=== PATIENT | male | born 1940 | race Caucasian/White ===

== ENCOUNTER → 2017-06-14 | Outpatient (CLI) | payer MEDICARE ==
[~2017-06-14] MED LIST: AMBIEN10 MG PO; CIPRO500 MG PO; CLINDAMYCIN HC150 MG PO; COLESTID1 GM PO; FLAGYL250 MG PO; GLIPIZIDE XL2.5 MG PO; HYDROXYZINE HCL25 MG PO; LEVAQUIN500 MG PO; LISINOPRIL-HCT1 EAC3 PO; MELATONIN PO; NORCO 7.5-3251 EACH PO; Z.0.LEVOXYL100 MCG PO; ZOLPIDEM TARTRAT5 MG PO
--- NOTE | 2017-06-14 20:55 | Cardiology Report ---
DATE OF STUDY: June 14, 2017 DOPPLER SCAN OF THE LOWER EXTREMITY ARTERIES The lower extremity arteries were interrogated using the Duplex scanning method. Segmental pressure measurements of ankle brachial indices were not submitted for interpretation. Duplex scan showed biphasic and triphasic waveforms throughout except for the right profundus femoral artery which showed monophasic waveform. CONCLUSION 1. Possible high-grade stenosis involving the right profundus femoral artery. 2. No high-grade stenosis or flow impairment elsewhere bilaterally with all waveforms elsewhere biphasic and triphasic. 3. No ankle brachial indices or segmental pressure measurements submitted for interpretation. Job#: [id number] GH cc:AUGUSTUS ARCHIBALD DO
== END ==
LOC: CARD 14:05
PROVIDERS: ATTEND Family Medicine
DX: I70.209 Unspecified atherosclerosis of native arteries of extremities, unspecified extremity (principal)
CPT/HCPCS: 93925

== ENCOUNTER → 2017-09-02 | Outpatient (CLI) | payer MEDICARE ==
[~2017-09-02] MED LIST changes: +DIATRIZOATE MEGL/DIATRIZOA SOD 30 ML BTL PO ONE; +IOPAMIDOL 370 MG/ML 200 ML INFUS..BTL INJ ONE; +SODIUM CHLORIDE 0.9% 50ML 50 ML ONE
[2017-09-02 08:03] LABS: BLOOD UREA NITROGEN 18 mg/dL (7-26); BUN/CREATININE RATIO 19 (6-25); CREATININE, SERUM 0.95 mg/dL (0.72-1.25); EST GLOMERULAR FILTRATION RATE > 60 ML/MIN (60-)
--- NOTE | 2017-09-02 11:27 | Diagnostic Imaging Report ---
PROCEDURE: CT ABDOMEN AND PELVIS WITH CONTRAST TECHNIQUE: The abdomen and pelvis were scanned utilizing a multidetector helical scanner from the diaphragm to the lesser trochanter after the IV administration of 100cc of Isovue 370 and the oral administration of Gastrografin. Coronal and sagittal multiplanar reformations were obtained. Total DLP: 568.8 mGy-cm COMPARISON: CT abdomen pelvis 01/20/2017. INDICATIONS: LLQ PAIN FINDINGS: LOWER THORAX: Normal. HEPATOBILIARY: Diffuse hepatic steatosis. No focal hepatic lesions. No biliary ductal dilatation. Gallbladder is surgically absent with cholecystectomy clips. SPLEEN: No splenomegaly. PANCREAS: No focal masses or ductal dilatation. ADRENALS: No adrenal nodules. KIDNEYS/URETERS: No hydronephrosis, stones, or solid mass lesions. A 0.5 cm cyst in the lower pole of the left kidney. PELVIC ORGANS/BLADDER: Prostate measures 6.0 cm in transverse dimension with coarse dystrophic calcifications. PERITONEUM / RETROPERITONEUM: No free air or fluid. LYMPH NODES: No lymphadenopathy. Several 0.9 cm right external iliac lymph node. 0.6 cm left external iliac with a lymph node. VESSELS: Moderate severe atherosclerotic calcifications in the abdominal aorta and major arterial branches. 2 right renal artery and one left renal artery. GI TRACT: No distention or wall thickening. Surgical sutures at the cecum, likely prior appendectomy. A few scattered colonic diverticula without evidence of diverticulitis. BONES AND SOFT TISSUES: Bilateral L5 pars defect is grade 1 anterolisthesis of L5 on S1. Mild disc space narrowing with disc vacuum phenomenon. Mild soft tissue density changes around the left inguinal canal, unchanged since 01/20/2017, consistent with previous left inguinal hernia repair. IMPRESSION: 1. No source of left lower quadrant abdominal pain identified. 2. Previous left groin/inguinal hernia repair. 3. Moderate atherosclerotic calcifications in the aorta. 4. Diffuse hepatic steatosis. Dictated by: Lauro Viramontes M.D. on 09/02/2017 at 11:27 Electronically approved by: Lauro Viramontes M.D. on 09/02/2017 at 11:27
== END ==
LOC: CT 07:24
PROVIDERS: ATTEND Internal Medicine Gastroenterology
DX: E11.9 Type 2 diabetes mellitus without complications (principal); R10.32 Left lower quadrant pain; R10.33 Periumbilical pain; I10 Essential (primary) hypertension; K58.9 Irritable bowel syndrome, unspecified; E66.3 Overweight; Z71.3 Dietary counseling and surveillance
CPT/HCPCS: 36415; 74177; 82565; 84520; Q9967

== ENCOUNTER → 2017-11-30 | Outpatient (CLI) | payer MEDICARE ==
[~2017-11-30] MED LIST changes: -DIATRIZOATE MEGL/DIATRIZOA SOD 30 ML BTL PO ONE; -IOPAMIDOL 370 MG/ML 200 ML INFUS..BTL INJ ONE; -SODIUM CHLORIDE 0.9% 50ML 50 ML ONE
--- NOTE | 2017-11-30 19:29 | Diagnostic Imaging Report ---
EXAM: Limited soft tissue Ultrasound INDICATION: Localized redness and palpable lump on extremity \S\MASS OF SOFT TISSUE OF LEFT UPPER EXTREMITY COMPARISON: None TECHNIQUE: Transverse and longitudinal images of the medial aspect of the left forearm, in area of palpable abnormality FINDINGS: Examination shows 2.0 x 0.5 x 1.2 cm heterogeneous collection in the subcutaneous tissues of the left forearm, corresponding to the palpable abnormality. Multiple internal echoes suggesting debris. There is mildly increased vascularity surrounding this collection. Mild surrounding soft tissue edema. IMPRESSION: 1. Findings likely represent subcutaneous abscess in the left forearm Signed by: Dr. Magdi Martinez M.D. on 11/30/2017 7:26 PM
== END ==
LOC: US 16:08
PROVIDERS: ATTEND Family Medicine
DX: R22.32 Localized swelling, mass and lump, left upper limb (principal)
CPT/HCPCS: 76882

== ENCOUNTER 2018-01-18 05:17 | Emergency (ER) | payer MEDICARE ==
[~2018-01-18] VITALS: Ht 177.8 cm; Wt 89.8 kg
[2018-01-18] MEDS ORDERED: PANTOPRAZOLE 40 MG 10ML VIAL IV STA (05:25)
[2018-01-18 06:00] LABS: BASOPHILS % 0.3 % (0.0-1.0); EOSINOPHILS # (AUTO) 0.3 (0.0-0.4); EOSINOPHILS % 3.1 % (0.0-6.0); HEMATOCRIT 45.2 % (38.2-49.6); HEMOGLOBIN 15.3 g/dL (14.0-18.0); LYMPHOCYTES # (AUTO) 3.4 (1.0-3.2); LYMPHOCYTES % 38.9 % (18.0-39.1); MEAN CORPUSCULAR HEMOGLOBIN 30.7 pg (28-32); MEAN CORPUSCULAR HGB CONC 33.8 g/dL (31-35); MEAN CORPUSCULAR VOLUME 90.8 fL (81-99); MONOCYTES # (AUTO) 0.8 (0.2-0.8); NEUTROPHILS # (AUTO) 4.2 (2.1-6.9); NEUTROPHILS % 48.5 % (38.7-80.0); PLATELET COUNT 248 x10e3/uL (140-360); RED BLOOD COUNT 4.98 x10e6/uL (4.3-5.7); RED CELL DISTRIBUTION WIDTH 12.9 % (11.7-14.4)
[2018-01-18 06:29] LABS: ALANINE AMINOTRANSFERASE 20 IU/L (0-55); ALBUMIN 4.1 g/dL (3.5-5.0); ALBUMIN/GLOBULIN RATIO 1.2 (0.8-2.0); ALKALINE PHOSPHATASE 68 IU/L (40-150); AMYLASE 64 U/L (25-125); ANION GAP 13.8 mmol/L (8-16); BLOOD UREA NITROGEN 16 mg/dL (7-26); BUN/CREATININE RATIO 17 (6-25); CARBON DIOXIDE 29 mmol/L (22-29); CHLORIDE 97 mmol/L (98-107); CREATINE KINASE 136 IU/L (30-200); CREATININE, SERUM 0.92 mg/dL (0.72-1.25); EST GLOMERULAR FILTRATION RATE > 60 ML/MIN (60-); GLUCOSE 90 mg/dL (74-118); LIPASE 37 U/L (8-78); POTASSIUM 3.8 mmol/L (3.5-5.1); SODIUM 136 mmol/L (136-145)
[2018-01-18 06:37] LABS: CALCIUM 10.2 mg/dL (8.4-10.2)
[2018-01-18 07:10] VITALS: BP 176/89
[2018-01-18 08:46] LABS: CREATINE KINASE 126 IU/L (30-200)
--- NOTE | 2018-01-18 09:04 | Diagnostic Imaging Report ---
PROCEDURE: A single AP view of the chest. COMPARISON: Chest radiograph 02/16/14. INDICATIONS: CHEST PAIN FINDINGS: Lines/tubes: None. Lungs: The lungs are well inflated and clear. There is no evidence of pneumonia or pulmonary edema. Pleura: There is no pleural effusion or pneumothorax. Heart and mediastinum: The cardiomediastinal silhouette is unremarkable. Bones: No acute bony abnormality. Partially seen cervical spine fixation hardware. IMPRESSION: No acute cardiopulmonary disease. Dictated by: TAJ MADRIGAL M.D. on 01/18/2018 at 7:40 Electronically approved by: TAJ MADRIGAL M.D. on 01/18/2018 at 7:40
== END 2018-01-18 09:15 | disposition home or self-care (01) ==
LOC: ER 05:17
DX: R10.13 Epigastric pain (principal); K29.00 Acute gastritis without bleeding; K21.9 Gastro-esophageal reflux disease without esophagitis
CPT/HCPCS: 36415; 71045; 80053; 82150; 82550; 82553; 83690; 84484; 85025; 93005; 99283

== ENCOUNTER 2018-03-21 09:37 | Inpatient (IN) | payer MEDICARE ==
[~2018-03-21] VITALS: Ht 167.6 cm; Wt 93.9 kg
[2018-03-21] MEDS ORDERED: CEFTRIAXONE SOD 1 GM VIAL INJ ONE (10:00)
[2018-03-21] MEDS ORDERED: ACETAMINOPHEN 325 MG TAB PO ONE (10:15)
[2018-03-21 10:45] LABS: BASOPHILS % 0.2 % (0.0-1.0); EOSINOPHILS # (AUTO) 0.1 (0.0-0.4); EOSINOPHILS % 0.5 % (0.0-6.0); HEMATOCRIT 43.8 % (38.2-49.6); HEMOGLOBIN 14.8 g/dL (14.0-18.0); LYMPHOCYTES # (AUTO) 1.4 (1.0-3.2); LYMPHOCYTES % 10.4 % (18.0-39.1); MEAN CORPUSCULAR HEMOGLOBIN 30.8 pg (28-32); MEAN CORPUSCULAR HGB CONC 33.8 g/dL (31-35); MEAN CORPUSCULAR VOLUME 91.1 fL (81-99); MONOCYTES # (AUTO) 1.2 (0.2-0.8); MONOCYTES % 8.6 % (4.4-11.3); NEUTROPHILS # (AUTO) 10.8 (2.1-6.9); PLATELET COUNT 244 x10e3/uL (140-360); RED BLOOD COUNT 4.81 x10e6/uL (4.3-5.7); RED CELL DISTRIBUTION WIDTH 13.2 % (11.7-14.4)
[2018-03-21] MEDS ORDERED: ONDANSETRON HCL INJ 2 MG/ML VIAL ONE (10:52)
[2018-03-21] MEDS ORDERED: SODIUM CHLORIDE 0.9% 1000ML 1,000 ML ONE (10:53)
--- NOTE | 2018-03-21 10:56 | Diagnostic Imaging Report ---
PROCEDURE: X-RAY CHEST, TWO VIEWS COMPARISON: 01/18/2018. INDICATIONS: HEADACHE, CHILLS FINDINGS: Lungs are well-inflated. No focal consolidation, pleural effusion, or pneumothorax. Cardiomediastinal contour and pulmonary vasculature are stable. Cervical spine fusion hardware partially visualized. Surgical clips project over the upper abdomen on the lateral radiograph likely related to cholecystectomy. Left sided cervical rib. CONCLUSION: No acute cardiopulmonary abnormality. Dictated by: Jack Menjivar M.D. on 03/21/2018 at 11:05 Electronically approved by: Jack Menjivar M.D. on 03/21/2018 at 11:05
[2018-03-21] MEDS ORDERED: ONDANSETRON HCL INJ 2 MG/ML VIAL IV STA (10:59)
[2018-03-21] MEDS ORDERED: SODIUM CHLORIDE 0.9% 1000ML 1,000 ML IV SCH (11:00)
[2018-03-21 11:03] LABS: ANION GAP 16.6 mmol/L (8-16); BLOOD UREA NITROGEN 13 mg/dL (7-26); BUN/CREATININE RATIO 13 (6-25); CALCIUM 9.7 mg/dL (8.4-10.2); CARBON DIOXIDE 26 mmol/L (22-29); CHLORIDE 100 mmol/L (98-107); CREATINE KINASE 140 IU/L (30-200); CREATININE, SERUM 1.01 mg/dL (0.72-1.25); EST GLOMERULAR FILTRATION RATE > 60 ML/MIN (60-); GLUCOSE 143 mg/dL (74-118); POTASSIUM 3.6 mmol/L (3.5-5.1); SODIUM 139 mmol/L (136-145)
[2018-03-21 12:00] LABS: CLARITY,URINE CLOUDY (CLEAR); COLOR,URINE YELLOW (YELLOW); LEUKOCYTE ESTERASE ,URINE 1+ (NEGATIVE); NITRITE,URINE POSITIVE (NEGATIVE); PROTEIN,URINE DIPSTICK NEGATIVE (NEGATIVE)
[2018-03-21 12:01] LABS: BILIRUBIN,URINE NEGATIVE (NEGATIVE); KETONES,URINE NEGATIVE (NEGATIVE); URINE UROBILINOGEN 0.2 mg/dL (0.2 - 1)
[2018-03-21 12:13] LABS: WBC,URINE (MAN) >50 /HPF (0-5)
[2018-03-21 12:14] LABS: BACTERIA,URINE MANY /HPF; EPITHELIAL CELLS,URINE RARE /LPF
[2018-03-21] MEDS ORDERED: ONDANSETRON HCL INJ 2 MG/ML VIAL IV PRN (13:30)
[2018-03-21] MEDS ORDERED: DEXTROSE 50% SYRINGE 50 ML IV PRN (13:30)
[2018-03-21] MEDS ORDERED: MORPHINE SULFATE 2 MG/ML SYR IV PRN (13:30)
[2018-03-21] MEDS ORDERED: MORPHINE SULFATE INJ 4 MG/ML INJ IV PRN (13:45)
[2018-03-21] MEDS ORDERED: KETOROLAC TROMETHAMINE 30 MG/ML VIAL IV STA (15:12)
[2018-03-21] MEDS: CEFTRIAXONE SOD 1 GM VIAL IV SCH (15:38)
[2018-03-21] MEDS: SODIUM CHLORIDE 0.9% 1000ML 1,000 ML IV SCH ×3 (15:39→23:13)
[2018-03-21] MEDS ORDERED: OMEPRAZOLE40 MG PO (16:11)
[2018-03-21] MEDS ORDERED: PLAVIX75 MG PO (16:11)
[2018-03-21] MEDS ORDERED: DIOVAN40 MG PO (16:11)
[2018-03-21 16:39] VITALS: BP 126/58
[2018-03-21 16:46] VITALS: BP 126/58
[2018-03-21] MEDS: INSULIN REGULAR, HUMAN 100 UNIT/1 ML 3ML VIAL SQ SCH ×2 (17:00→20:32)
[2018-03-21 17:22] VITALS: BP 126/58
[2018-03-21] MEDS: ACETAMIN/BUTALBITAL/CAFFEINE TAB PO PRN (18:21)
[2018-03-21 20:09] VITALS: BP 138/64
[2018-03-21 20:09] LABS: CREATINE KINASE MB 1.4 ng/mL (0-5.0)
[2018-03-21 20:10] VITALS: BP 138/64
[2018-03-21] MEDS: CLOPIDOGREL BISULFATE 75 MG TAB PO SCH (20:32)
--- NOTE | 2018-03-21 22:04 | Consultation ---
DATE OF CONSULTATION: March 21, 2018 CARDIAC CONSULTATION REASON FOR THE CONSULTATION: Cardiac care in patient with recent PCI and stenting of calcified coronary artery. HISTORY: This is a nice 78-year-old gentleman, who is known with coronary artery disease. His cardiac stress test was quite abnormal and he is having angina. He had the cardiac catheterization with very calcified coronary arteries. He got atherectomy and stenting of the LAD. He did well. He went home on medication very happy and doing well. He was able to maintain more activity with no anginal chest pain, no chest pressure, no chest tightness. He resumed all his medication. Yesterday evening, he started having fevers, chills, and difficulty urination. The fever, chills continue. 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 His temperature was 101. I advised him to come to the emergency room. His urinalysis is abnormal, admitted with acute pyelonephritis and cardiac consultation was obtained. CURRENT MEDICATIONS 1. Plavix 75 mg a day. 2. Aspirin 81 mg a day. 3. Losartan/hydrochlorothiazide 50 and 12.5 mg daily. 4. Levothyroxine 120 mcg a day. 5. Glipizide 2.5 mg a day. ALLERGIES: NONE. PAST MEDICAL HISTORY 1. CAD, status post recent PCI and atherectomy and PCI stenting of the LAD. 2. Diabetes mellitus. 3. Hypothyroidism. 4. Past history of H. pylori treatment. 5. Cholecystectomy. 6. Lower back surgery. 7. Cervical spine surgery in 2012. 8. Hernia surgery. 9. Appendectomy. 10. Left knee replacement in 2013. SOCIAL HISTORY: He is . He is nonsmoker, non-alcohol drinker. He is retired from [employer] and [employer] [place]. FAMILY HISTORY: Mother of a car accident at age 77. Father in the same car accident. Eleven siblings, few of them with coronary artery disease and bypass surgery. REVIEW OF SYSTEMS GENERAL: Fever and chills. HEENT: Decreased hearing. PULMONARY/CARDIAC: No angina, no orthopnea, no paroxysmal nocturnal dyspnea. GI: History of GERD. No hematemesis, no melena. HEMATOLOGICAL: No easy bruising or bleeding. : Fever, chills, and dysuria. MUSCULOSKELETAL: Weakness generalized. NEUROLOGIC: Good memory. No weakness no tingling. PHYSICAL EXAM VITALS: 5 feet 10. Weight of 197 pounds. Temperature of 100 Fahrenheit. Respiratory rate of 20. HEENT: Pupils are reactive. Decreased hearing is noted. NECK: No elevation of jugular venous pulsation. CHEST: Clear to auscultation and percussion. HEART: PMI 5th intracostal space. Normal 1st and 2nd heart sounds. ABDOMEN: Soft with good bowel sounds. No organomegaly. EXTREMITIES: No cyanosis. No clubbing. Decreased feet pulses. Right groin area no hematoma and no abnormality noted. LABORATORY DATA: White blood cell count shows 15.5 with left shift. EKG, no acute changes. Hemoglobin of 14.8, hematocrit 45%, BUN of 13, creatinine of 1.1. Urinalysis positive for blood and WBCs and nitrate. IMPRESSIONS AND PLAN 1. Pyelonephritis. 2. Diabetes mellitus. 3. Hypertension. 4. Coronary artery disease. 5. Hypertension. 6. Hypercholesterolemia. Cardiac-shirley will maintain patient on his Plavix, losartan, statin, and levothyroxine. Patient started on antibiotic. Will follow patient's progression with you. Job#: [id number]
[2018-03-21] MEDS: TEMAZEPAM 15 MG CAP PO PRN (23:38)
[2018-03-22] VITALS (8 sets, daily range): BP systolic 110–163; BP diastolic 62–77
[2018-03-22] MEDS: LEVOTHYROXINE SODIUM 100 MCG TAB PO SCH (05:05)
[2018-03-22 05:11] LABS: BASOPHILS # (AUTO) 0.1 (0.0-0.1); BASOPHILS % 0.2 % (0.0-1.0); EOSINOPHILS # (AUTO) 0.1 (0.0-0.4); EOSINOPHILS % 0.6 % (0.0-6.0); HEMATOCRIT 37.8 % (38.2-49.6); HEMOGLOBIN 12.7 g/dL (14.0-18.0); LYMPHOCYTES # (AUTO) 2.5 (1.0-3.2); LYMPHOCYTES % 12.4 % (18.0-39.1); MEAN CORPUSCULAR HEMOGLOBIN 30.8 pg (28-32); MEAN CORPUSCULAR HGB CONC 33.6 g/dL (31-35); MEAN CORPUSCULAR VOLUME 91.5 fL (81-99); MONOCYTES # (AUTO) 2.3 (0.2-0.8); MONOCYTES % 11.3 % (4.4-11.3); NEUTROPHILS # (AUTO) 15.3 (2.1-6.9); PLATELET COUNT 203 x10e3/uL (140-360); RED BLOOD COUNT 4.13 x10e6/uL (4.3-5.7); RED CELL DISTRIBUTION WIDTH 13.2 % (11.7-14.4)
[2018-03-22 05:47] LABS: CREATINE KINASE MB 1.1 ng/mL (0-5.0)
[2018-03-22 06:13] LABS: ANION GAP 13.1 mmol/L (8-16); BLOOD UREA NITROGEN 16 mg/dL (7-26); BUN/CREATININE RATIO 14 (6-25); CALCIUM 8.8 mg/dL (8.4-10.2); CARBON DIOXIDE 26 mmol/L (22-29); CHLORIDE 103 mmol/L (98-107); CREATININE, SERUM 1.14 mg/dL (0.72-1.25); EST GLOMERULAR FILTRATION RATE > 60 ML/MIN (60-); GLUCOSE 129 mg/dL (74-118); POTASSIUM 4.1 mmol/L (3.5-5.1); SODIUM 138 mmol/L (136-145)
[2018-03-22] MEDS ORDERED: DIOVAN80 MG PO (06:21)
[2018-03-22] MEDS: INSULIN REGULAR, HUMAN 100 UNIT/1 ML 3ML VIAL SQ SCH ×4 (07:30→20:15)
[2018-03-22 07:39] LABS: BAND NEUTROPHILS % (MANUAL) 1 %; LYMPHOCYTES % (MANUAL) 15 % (19-48); MONOCYTES % (MANUAL) 9 % (3.4-9.0); NEUTROPHILS % (MANUAL) 75 % (40-74); PLATELET ESTIMATE ADEQUATE; PLATELET MORPHOLOGY COMMENT NORMAL; RBC MORPHOLOGY COMMENT NORMAL
[2018-03-22] MEDS: GLIPIZIDE 2.5 MG TABCR PO SCH ×2 (08:39→16:13)
[2018-03-22] MEDS: ASPIRIN 81 MG ENTERIC COATED PO SCH (08:40)
[2018-03-22] MEDS: PANTOPRAZOLE SOD 40 MG TABEC PO SCH (08:40)
[2018-03-22] MEDS: COLESTIPOL HCL 1 G TAB PO SCH ×2 (08:40→16:13)
[2018-03-22] MEDS ORDERED: CLOPIDOGREL BISULFATE 75 MG TAB PO SCH (09:00)
[2018-03-22] MEDS: CEFTRIAXONE SOD 1 GM VIAL IV SCH (13:26)
[2018-03-22] MEDS: SODIUM CHLORIDE 0.9% 1000ML 1,000 ML IV SCH (13:53)
--- OUTSIDE RECORDS SUMMARY | 2018-03-22 14:18 | XMS REPORT | Continuity of Care Document ---
Author Author Jone cristina [facility] Interface Address Unknown Phone Unavailable Problems Problem Status Onset Date Classification Date Reported Comments Source 724.1 - PAIN IN THORACI Active 12/12/2013 [facility] 719.46 - JOINT PAIN-L/LE Active 12/06/2013 [facility] Medications Medication Details Route Status Patient Instructions Ordering Provider Order Date Source Allergies, Adverse Reactions, Alerts Substance Category Reaction Severity Reaction type Status Date Reported Comments Source Immunizations Immunization Date Given Site Status Last Updated Comments Source Results Order Name Results Value Reference Range Date Interpretation Comments Source Spine lumbar wo contrast MRI Spine lumbar wo contrast MRI MRI LUMBAR SPINE WITHOUT CONTRAST COMPARISON: 12/18/2013 radiograph exam. TECHNIQUE: Sagittal T1, sagittal T2 with fat saturation, axial T1 and axial T2 images were obtained. No intravenous gadolinium was given. FINDINGS: The paravertebral soft tissues are normal. The conus medullaris terminates at the L1-L2 level. Congenital shortened lumbar pedicles are seen. L1-L2: Mild thecal sac stenosis is seen due to the short lumbar pedicles. Mild bilateral foraminal stenosis due to mild bilateral foraminal disc bulges. L2-L3: Moderate thecal sac stenosis is seen due to the mild disc bulge and the short lumbar pedicles. Encroachment into the neural foramina is seen with moderate right foraminal stenosis and mild to moderate left foraminal stenosis. L3-L4: Mild dorsal disc osteophyte complex is seen resulting in moderate to severe thecal sac stenosis in combination with the short lumbar pedicles. Moderate to severe bilateral foraminal stenosis is also present with mass effect on the bilateral L3 exiting nerve root sleeves. L4-L5: Significant ligamenta flava redundancy is seen. Approximately 2.3 mm left subligamentous synovial cyst is present. Mild disc bulge is seen. Severe central canal stenosis is seen with the thecal sac measuring approximately 5.5 mm in the AP dimension. Moderate to severe bilateral foraminal stenosis is present. L5-S1: Grade 1 anterolisthesis is seen due to the bilateral L5 spondylolysis. Significant bilateral facet osteoarthritis is seen. There is moderate to severe thecal sac stenosis with mild disc bulge and posterior annular fissuring. There is severe bilateral foraminal stenosis with mass effect on the bilateral L5 exiting nerve root sleeves. IMPRESSION: 1. Multilevel disc degenerative disease and spondylosis. Congenital shortened lumbar pedicles are seen. 2. L5-S1 grade 1 spondylolisthesis with moderate to severe thecal sac stenosis and severe bilateral foraminal stenosis. 3. L4-L5 severe central canal stenosis and moderate to severe bilateral foraminal stenosis as above. 4. L2-L3 and L3-L4 moderate to severe thecal sac stenosis and foraminal stenosis as above. 01/03/2014 - - Read by: Jovani Saini MD Dictated Date/time: 01/03/14 11:04 Electronically Signed by: Jovani Saini MD 01/03/14 11:20 FINAL REPORT [facility] Spine lumbar minimum 4 views Spine lumbar minimum 4 views LUMBAR SPINE SERIES CLINICAL HISTORY: Low back pain. COMPARISON IMAGING: None. FINDINGS: Five views of the lumbar spine were obtained. Moderate multilevel degenerative changes are present, including loss of disc height, endplate sclerosis, marginal osteophytes, and facet hypertrophy. There is mild grade 1 anterolisthesis of L5 on S1 approximately 6 mm. No fracture or subluxation is seen. Soft tissues are grossly unremarkable. IMPRESSION: Moderate multilevel degenerative changes with grade 1 anterolisthesis of L5 on S1. 12/18/2013 - - Read by: Hannah Small DO Dictated Date/time: 12/18/13 08:06 Electronically Signed by: Hannah Small DO 12/18/13 08:09 FINAL REPORT [facility] Vital Signs Vital Sign Value Date Comments Source Encounters Location Location Details Encounter Type Encounter Number Reason For Visit Attending Provider ADM Date DC Date Status Source [facility] [id number] Rosas Jensen 12/06/2013 12/07/2013 [facility] [id number] Rosas Jensen 12/18/2013 12/19/2013 [facility] [id number] Rosas Jensen 01/03/2014 01/04/2014 [facility] Procedures Procedure Code Date Perfomer Comments Source
--- OUTSIDE RECORDS SUMMARY | 2018-03-22 14:18 | XMS REPORT ---
Author Author [facility] Address Unknown Phone Unavailable Care Team Providers Care Motor Adjuster Name Role Phone Ignacio MEJIA Unavailable Unavailable Ignacio VIGIL Unavailable Unavailable ALICE ARCHIBALD Unavailable Unavailable Torres SOFIA Unavailable Unavailable AUGUSTUS ARCHIBALD Unavailable Unavailable Payers Payer Name Policy Type Policy Number Effective Date Expiration Date Problems This patient has no known problems. Allergies, Adverse Reactions, Alerts Allergy Name Allergy Type Status Severity Reaction(s) Onset Date Inactive Date Treating Clinician Comments No Known Allergies DA Active U 2013-03-17 00:00:00 Medications This patient has no known medications. Results Test Description Test Time Test Comments Text Results Atomic Results Result Comments CHEST 2 VIEWS 2018-03-21 11:05:00 [facility] [address] [place] [address] Patient Name: JOVITA OLIVA MR #: [id number] : 1940 Age/Sex: 78/M Req #: [id number] Adm Physician: Ordered by: BARBARA MEJIA MD Report #: [id number] Location: ER Room/Bed: Procedure: [id number] DX/CHEST 2 VIEWS Exam Date: 03/21/18 Exam Time: 1040 REPORT STATUS: Signed PROCEDURE: X-RAY CHEST, TWO VIEWS COMPARISON: 01/18/2018. INDICATIONS: HEADACHE, CHILLS FINDINGS: Lungs are well-inflated. No focal consolidation, pleural effusion, or pneumothorax. Cardiomediastinal contour and pulmonary vasculature are stable. Cervical spine fusion hardware partially visualized. Surgical clips project over the upper abdomen on the lateral radiograph likely related to cholecystectomy. Left sided cervical rib. CONCLUSION: No acute cardiopulmonary abnormality. Dictated by: Grupo Mendoza M.D. on 03/21/2018 at 11:05 Electronically approved by: Grupo Mendoza M.D. on 03/21/2018 at 11:05 Dictated By: GRUPO MENDOZA MD 110 Transcribed By: VALARIE on 03/21/18 110 COPY TO: BARBARA MEJIA MD CHEST SINGLE (NOT PORTABLE) 2018-01-18 07:40:00 [place] [address] Patient Name: JOVITA OLIVA MR #: [id number] : 1940 Age/Sex: 77/M Req #: [id number] Adm Physician: Ordered by: LISA JUNG MD Report #: [id number] Location: ER Room/Bed: Procedure: [id number] DX/CHEST SINGLE (NOT PORTABLE) Exam Date: 01/18/18 Exam Time: 0700 REPORT STATUS: Signed PROCEDURE: A single AP view of the chest. COMPARISON: Chest radiograph 02/16/14. INDICATIONS: CHEST PAIN FINDINGS: Lines/tubes: None. Lungs: The lungs are well inflated and clear. There is no evidence of pneumonia or pulmonary edema. Pleura: There is no pleural effusion or pneumothorax. Heart and mediastinum: The cardiomediastinal silhouette is unremarkable. Bones: No acute bony abnormality. Partially seen cervical spine fixation hardware. IMPRESSION: No acute cardiopulmonary disease. Dictated by: TAJ MADRIGAL M.D. on 01/18/2018 at 7:40 Electronically approved by: TAJ MADRIGAL M.D. on 01/18/2018 at 7:40 Dictated By: TAJ MADRIGAL MD 9 Transcribed By: VALARIE on 01/18/18739 COPY TO: LISA JUNG MD US EXTREMITY RUSHING NON-VAS 2017-11-30 19:24:00 [place] [address] Patient Name: JOVITA OLIVA MR #: [id number] : 1940 Age/Sex: 77/M Req #: [id number] Adm Physician: Ordered by: ARCHIBALD ANDREW DO Report #: [id number] Location: Room/Bed: Procedure: [id number] US/US EXTREMITY RUSHING NON-VAS Exam Date: Exam Time: REPORT STATUS: Signed EXAM: Limited soft tissue Ultrasound INDICATION: Localized redness and palpable lump on extremity COMPARISON: None TECHNIQUE: Transverse and longitudinal images of the medial aspect of the left forearm, in area of palpable abnormality FINDINGS: Examination shows 2.0 x 0.5 x 1.2 cm heterogeneous collection in the subcutaneous tissues of the left forearm, corresponding to the palpable abnormality. Multiple internal echoes suggesting debris. There is mildly increased vascularity surrounding this collection. Mild surrounding soft tissue edema. IMPRESSION: 1. Findings likely represent subcutaneous abscess in the left forearm Signed by: Dr. Magdi Martinez M.D. on 11/30/2017 7:26 PM Dictated By: MAGDI MARTINEZ MD 25 Transcribed By: JAY on 11/30/171925 COPY TO: ALICE ARCHIBALD DO CT ABDOMEN/PELVIS W [place] [address] Patient Name: JOVITA OLIVA MR #: [id number] : 1940 Age/Sex: 77/M Req #: [id number] Adm Physician: Ordered by: VERONICA SOFIA MD Report #: [id number] Location: CT Room/Bed: Procedure: [id number] CT/CT ABDOMEN/PELVIS W Exam Date: 09/02/17 Exam Time: 0837 REPORT STATUS: Signed PROCEDURE: CT ABDOMEN AND PELVIS WITH CONTRAST TECHNIQUE: The abdomen and pelvis were scanned utilizing a multidetector helical scanner from the diaphragm to the lesser trochanter after the IV administration of 100cc of Isovue 370 and the oral administration of Gastrografin. Coronal and sagittal multiplanar reformations were obtained. Total DLP: 568.8 mGy-cm COMPARISON: CT abdomen pelvis 01/20/2017. INDICATIONS: LLQ PAIN FINDINGS: LOWER THORAX: Normal. HEPATOBILIARY: Diffuse hepatic steatosis. No focal hepatic lesions. No biliary ductal dilatation. Gallbladder is surgically absent with cholecystectomy clips. SPLEEN: No splenomegaly. PANCREAS: No focal masses or ductal dilatation. ADRENALS: No adrenal nodules. KIDNEYS/URETERS: No hydronephrosis, stones, or solid mass lesions. A 0.5 cm cyst in the lower pole of the left kidney. PELVIC ORGANS/BLADDER: Prostate measures 6.0 cm in transverse dimension with coarse dystrophic calcifications. PERITONEUM / RETROPERITONEUM: No free air or fluid. LYMPH NODES: No lymphadenopathy. Several 0.9 cm right external iliac lymph node. 0.6 cm left external iliac with a lymph node. VESSELS: Moderate severe atherosclerotic calcifications in the abdominal aorta and major arterial branches. 2 right renal artery and one left renal artery. GI TRACT: No distention or wall thickening. Surgical sutures at the cecum, likely prior appendectomy. A few scattered colonic diverticula without evidence of diverticulitis. BONES AND SOFT TISSUES: Bilateral L5 pars defect is grade 1 anterolisthesis of L5 on S1. Mild disc space narrowing with disc vacuum phenomenon. Mild soft tissue density changes around the left inguinal canal, unchanged since 01/20/2017, consistent with previous left inguinal hernia repair. IMPRESSION: 1. No source of left lower quadrant abdominal pain identified. 2. Previous left groin/inguinal hernia repair. 3. Moderate atherosclerotic calcifications in the aorta. 4. Diffuse hepatic steatosis. Dictated by: Lauro Johnson M.D. on 09/02/2017 at 11:27 Electronically approved by: Lauro Johnson M.D. on 09/02/2017 at 11:27 Dictated By: LAURO JOHNSON MD 112 Transcribed By: VALARIE on 09/02/17 112 COPY TO: VERONICA SOFIA MD ARTERIAL DUPLEX LWR B/L [place] [address] Patient Name : JOVITA OLIVA MR #: [id number] : 1940 Age/Sex: 77/M Adm Physician : AUGUSTUS ARCHIBALD DO Admit Date : Location : CARD Room/Bed : REPORT: Cardiology Report DATE OF STUDY: June 14, 2017 DOPPLER SCAN OF THE LOWER EXTREMITY ARTERIES The lower extremity arteries were interrogated using the Duplex scanning method. Segmental pressure measurements of ankle brachial indices were not submitted for interpretation. Duplex scan showed biphasic and triphasic waveforms throughout except for the right profundus femoral artery which showed monophasic waveform. CONCLUSION 1. Possible high-grade stenosis involving the right profundus femoral artery. 2. No high-grade stenosis or flow impairment elsewhere bilaterally with all waveforms elsewhere biphasic and triphasic. 3. No ankle brachial indices or segmental pressure measurements submitted for interpretation. Job#: [id number] GH cc: AUGUSTUS ARCHIBALD DO Signature Date Dictated By: VIKY HARVEY MD Transcribed By: EDS on 06/14/17 <Electronically signed by VIKY HARVEY MD><<Signature on File>>06/25/17 102 COPY TO:
[2018-03-22] MEDS: MEROPENEM 1 GM VIAL IV SCH (17:10)
[2018-03-22] MEDS: CLOPIDOGREL BISULFATE 75 MG TAB PO SCH (20:15)
[2018-03-22] MEDS: ACETAMIN/BUTALBITAL/CAFFEINE TAB PO PRN (20:31)
[2018-03-22] MEDS: LOSARTAN POTASSIUM 100 MG TAB PO SCH (20:32)
[2018-03-22] MEDS ORDERED: MEROPENEM 1GRAM 1 GM in SODIUM CHLORIDE 0.9% 100 ML 100 ML IV SCH (21:00)
[2018-03-22] MEDS: TEMAZEPAM 15 MG CAP PO PRN (23:06)
[2018-03-23] VITALS (8 sets, daily range): BP systolic 121–194; BP diastolic 64–87
[2018-03-23] MEDS: SODIUM CHLORIDE 0.9% 1000ML 1,000 ML IV SCH (05:37)
[2018-03-23] MEDS: MEROPENEM 1 GM VIAL IV SCH ×2 (05:37→17:20)
[2018-03-23] MEDS: LEVOTHYROXINE SODIUM 100 MCG TAB PO SCH (05:37)
[2018-03-23 05:39] LABS: BASOPHILS % 0.4 % (0.0-1.0); EOSINOPHILS # (AUTO) 0.2 (0.0-0.4); HEMATOCRIT 36.8 % (38.2-49.6); HEMOGLOBIN 12.9 g/dL (14.0-18.0); LYMPHOCYTES # (AUTO) 1.8 (1.0-3.2); LYMPHOCYTES % 16.3 % (18.0-39.1); MEAN CORPUSCULAR HEMOGLOBIN 31.4 pg (28-32); MEAN CORPUSCULAR HGB CONC 35.1 g/dL (31-35); MEAN CORPUSCULAR VOLUME 89.5 fL (81-99); MONOCYTES # (AUTO) 1.4 (0.2-0.8); MONOCYTES % 12.7 % (4.4-11.3); NEUTROPHILS # (AUTO) 7.5 (2.1-6.9); NEUTROPHILS % 68.1 % (38.7-80.0); PLATELET COUNT 194 x10e3/uL (140-360); RED BLOOD COUNT 4.11 x10e6/uL (4.3-5.7); RED CELL DISTRIBUTION WIDTH 13.2 % (11.7-14.4)
[2018-03-23 05:44] LABS: ANION GAP 14.6 mmol/L (8-16); BLOOD UREA NITROGEN 13 mg/dL (7-26); BUN/CREATININE RATIO 16 (6-25); CALCIUM 9.1 mg/dL (8.4-10.2); CARBON DIOXIDE 23 mmol/L (22-29); CHLORIDE 104 mmol/L (98-107); CREATININE, SERUM 0.83 mg/dL (0.72-1.25); EST GLOMERULAR FILTRATION RATE > 60 ML/MIN (60-); GLUCOSE 96 mg/dL (74-118); POTASSIUM 3.6 mmol/L (3.5-5.1); SODIUM 138 mmol/L (136-145)
[2018-03-23] MEDS: INSULIN REGULAR, HUMAN 100 UNIT/1 ML 3ML VIAL SQ SCH ×4 (07:30→20:59)
[2018-03-23] MEDS: ASPIRIN 81 MG ENTERIC COATED PO SCH ×2 (09:00→09:30)
[2018-03-23] MEDS: METOPROLOL SUCCINATE 25 MG TAB XL PO SCH (09:30)
[2018-03-23] MEDS: PANTOPRAZOLE SOD 40 MG TABEC PO SCH (09:30)
[2018-03-23] MEDS: GLIPIZIDE 2.5 MG TABCR PO SCH ×2 (09:30→17:20)
[2018-03-23] MEDS: COLESTIPOL HCL 1 G TAB PO SCH ×2 (09:35→17:20)
[2018-03-23] MEDS: OXYBUTYNIN CHLORIDE 5 MG TAB PO SCH (20:59)
[2018-03-23] MEDS: ATORVASTATIN 20 MG TAB PO SCH (20:59)
[2018-03-23] MEDS: CLOPIDOGREL BISULFATE 75 MG TAB PO SCH (20:59)
[2018-03-23] MEDS ORDERED: OXYBUTYNIN CHLORIDE XL 5 MG TAB PO SCH (21:00)
[2018-03-24] VITALS (7 sets, daily range): BP systolic 148–160; BP diastolic 73–88
[2018-03-24] MEDS: LEVOTHYROXINE SODIUM 100 MCG TAB PO SCH (05:28)
[2018-03-24] MEDS: MEROPENEM 1 GM VIAL IV SCH ×2 (05:28→17:54)
[2018-03-24 06:18] LABS: BASOPHILS % 0.4 % (0.0-1.0); EOSINOPHILS # (AUTO) 0.3 (0.0-0.4); EOSINOPHILS % 3.6 % (0.0-6.0); HEMATOCRIT 37.8 % (38.2-49.6); LYMPHOCYTES # (AUTO) 1.4 (1.0-3.2); LYMPHOCYTES % 17.7 % (18.0-39.1); MEAN CORPUSCULAR HEMOGLOBIN 31.2 pg (28-32); MEAN CORPUSCULAR HGB CONC 34.4 g/dL (31-35); MEAN CORPUSCULAR VOLUME 90.6 fL (81-99); MONOCYTES # (AUTO) 1.2 (0.2-0.8); MONOCYTES % 15.1 % (4.4-11.3); NEUTROPHILS # (AUTO) 5.1 (2.1-6.9); NEUTROPHILS % 62.8 % (38.7-80.0); PLATELET COUNT 226 x10e3/uL (140-360); RED BLOOD COUNT 4.17 x10e6/uL (4.3-5.7); RED CELL DISTRIBUTION WIDTH 13.2 % (11.7-14.4)
[2018-03-24 06:36] LABS: ANION GAP 15.7 mmol/L (8-16); BLOOD UREA NITROGEN 11 mg/dL (7-26); BUN/CREATININE RATIO 14 (6-25); CALCIUM 9.1 mg/dL (8.4-10.2); CARBON DIOXIDE 23 mmol/L (22-29); CHLORIDE 102 mmol/L (98-107); EST GLOMERULAR FILTRATION RATE > 60 ML/MIN (60-); GLUCOSE 121 mg/dL (74-118); POTASSIUM 3.7 mmol/L (3.5-5.1); SODIUM 137 mmol/L (136-145)
[2018-03-24] MEDS: INSULIN REGULAR, HUMAN 100 UNIT/1 ML 3ML VIAL SQ SCH ×4 (07:30→21:00)
[2018-03-24] MEDS: OXYBUTYNIN CHLORIDE 5 MG TAB PO SCH ×3 (08:20→20:59)
[2018-03-24] MEDS: PANTOPRAZOLE SOD 40 MG TABEC PO SCH (08:20)
[2018-03-24] MEDS: METOPROLOL SUCCINATE 25 MG TAB XL PO SCH (08:20)
[2018-03-24] MEDS: LOSARTAN POTASSIUM 100 MG TAB PO SCH (08:20)
[2018-03-24] MEDS: ASPIRIN 81 MG ENTERIC COATED PO SCH (08:20)
[2018-03-24] MEDS: GLIPIZIDE 2.5 MG TABCR PO SCH ×2 (08:20→17:54)
[2018-03-24] MEDS: COLESTIPOL HCL 1 G TAB PO SCH ×2 (08:20→17:54)
[2018-03-24] MEDS ORDERED: MUPIROCIN 2% OINT 22 GM TUBE ONE (08:32)
[2018-03-24] MEDS ORDERED: BUPIVACAINE HCL 0.5% INJ 30 ML VIAL INJ ONE (08:33)
[2018-03-24] MEDS: ACETAMIN/BUTALBITAL/CAFFEINE TAB PO PRN (20:59)
[2018-03-24] MEDS: ATORVASTATIN 20 MG TAB PO SCH (20:59)
[2018-03-24] MEDS: CLOPIDOGREL BISULFATE 75 MG TAB PO SCH (20:59)
[2018-03-25] VITALS: BP 116/53
[2018-03-25 04:00] VITALS: BP 121/56
[2018-03-25] MEDS: LEVOTHYROXINE SODIUM 100 MCG TAB PO SCH (05:58)
[2018-03-25] MEDS: MEROPENEM 1 GM VIAL IV SCH (05:58)
[2018-03-25 07:30] VITALS: BP 156/82
[2018-03-25] MEDS: INSULIN REGULAR, HUMAN 100 UNIT/1 ML 3ML VIAL SQ SCH (07:30)
[2018-03-25 08:00] VITALS: BP 156/82
[2018-03-25] MEDS: OXYBUTYNIN CHLORIDE 5 MG TAB PO SCH (08:27)
[2018-03-25] MEDS: LOSARTAN POTASSIUM 100 MG TAB PO SCH (08:27)
[2018-03-25] MEDS: ASPIRIN 81 MG ENTERIC COATED PO SCH (08:27)
[2018-03-25] MEDS: COLESTIPOL HCL 1 G TAB PO SCH (08:27)
[2018-03-25] MEDS: PANTOPRAZOLE SOD 40 MG TABEC PO SCH (08:27)
[2018-03-25] MEDS: GLIPIZIDE 2.5 MG TABCR PO SCH (08:27)
[2018-03-25] MEDS: METOPROLOL SUCCINATE 25 MG TAB XL PO SCH (08:28)
[2018-03-25] MEDS ORDERED: OXYBUTYNIN CHLOR5 MG PO (09:57)
[2018-03-25] MEDS ORDERED: CEFUROXIME250 MG PO (09:59)
--- NOTE | 2018-05-17 01:20 | Discharge Summary ---
CHIEF COMPLAINT: Acute pyelonephritis with bacteremia. FINAL DIAGNOSES: 1. Urinary tract infection secondary to Escherichia coli. 2. Hypertension. 3. Diabetes type 2. 4. Incontinence. DISPOSITION: Home. [age]old male with known history of diabetes type 2, hypertension, hyperlipidemia, hypothyroidism, brought to the ER with a 1- to 2-day history of increased frequency and urgency to urinate. The patient denies any fever or chills. He has a recent history 1 week ago where a coronary stent was placed. Further review and evaluation in the ER led to admission for evaluation of dysuria, polyuria, UTI, diabetes type 2, coronary artery disease, hyperlipidemia, acute pyelonephritis. Will begin IV fluid coverage, analgesic management, start IV antibiotics, request a cardiology review. Patient was being maintained on ADA diet, receiving IV fluids, aspirin 81 mg daily. Insulin was being managed a.c. and at bedtime. Started on ceftriaxone 1 g q.24. Morphine was being administered for pain. Laboratory studies were stable. Kidney functions were stable. Glucose 143. CBC was showing a white cell count of 13,500. He was placed in IMCU. He was continued on his daily medications as well. White cell count smiley to 20,000. Urine cultures were revealing gram-negative bacillus. Was continuing to have issues with frequency and dysuria. His antibiotics were now being switched over to meropenem 1 g IV q.12; and with cardiology follow, aspirin was being added as well as atorvastatin as well as beta blockers. Patient was beginning to respond to treatment. The organism in the urine was identified as E. coli. Continued to receive the meropenem. Further white cell counts now were down to 8000. Still was having issues of increased urgency. Was now being placed on oxybutynin, and the patient began to do better overall, and arrangements were being made for discharge planning, further care, will be followed up as an outpatient. IVs were discontinued. The patient was released home on March 25, 2018 in good condition. EKGs are showing sinus tachycardia, left axis deviation, pulmonary disease pattern. Was given paperwork and pamphlets regarding pyelonephritis as well as urinary tract infections. Will continue on his current diet. No equipment or supplies necessary. No drains or [place] are needed. Activity level as directed by me as well as by cardiology. Will be following up with PCP in 1 week. Continue to follow up with cardiology as needed. Was given a prescription for oxybutynin 5 mg 1 tablet p.o. t.i.d.; Ceftin 250 one tablet p.o. b.i.d, will continue on cefuroxime 250 mg twice a day, that should be Ceftin, that is the generic for Ceftin. Continue on Plavix 75 mg daily, Colestid 1 g twice a day, glipizide 2.5 mg twice a day, Levoxyl 100 mcg daily, omeprazole 40 mg daily, oxybutynin 5 mg 3 times a day. If the patient continues to have similar symptoms, he will be contacting his PCP. Dictated By: SANDRA Alejandro Job#: [id number]
== END 2018-03-25 10:36 | disposition home or self-care (01) | DRG 872 ==
LOC: ER 09:37 → ERHOLD 13:57 → IMCU 16:25 → OBSVTOIN 03-22 13:26 → MED/SURG2 03-22 21:53
DX: A41.89 Other specified sepsis (principal); N10 Acute pyelonephritis; B96.20 Unspecified Escherichia coli [E. coli] as the cause of diseases classified elsewhere; I25.10 Atherosclerotic heart disease of native coronary artery without angina pectoris; E78.00 Pure hypercholesterolemia, unspecified; Z95.5 Presence of coronary angioplasty implant and graft; Z96.652 Presence of left artificial knee joint; Z79.84 Long term (current) use of oral hypoglycemic drugs; E11.65 Type 2 diabetes mellitus with hyperglycemia
CPT/HCPCS: 36415; 71046; 80048; 81001; 82550; 82553; 82948; 84484; 85025; 85651; 87086; 87186; 93005; 96361; 99284; G0378; J0696; J1885; J2185; J2405; J7030

== ENCOUNTER → 2018-08-12 | Outpatient (CLI) | payer MEDICARE ==
[~2018-08-12] MED LIST changes: +CEFUROXIME250 MG PO; +DIOVAN40 MG PO; +DIOVAN80 MG PO; +GADOBENATE DIMEGLUMINE 1 ML IV ONE; +OMEPRAZOLE40 MG PO; +OXYBUTYNIN CHLOR5 MG PO; +PLAVIX75 MG PO
[2018-08-12 11:04] LABS: BLOOD UREA NITROGEN 20 mg/dL (7-26); BUN/CREATININE RATIO 20 (6-25); EST GLOMERULAR FILTRATION RATE > 60 ML/MIN (60-)
--- NOTE | 2018-08-12 17:23 | Diagnostic Imaging Report ---
EXAM: MR Abdomen WITHOUT and WITH Contrast Magnetic Resonance Cholangiopancreatography (M.R.C.P.) INDICATION: ^EPIGASTRIC PAIN COMPARISON: CT abdomen and pelvis 09/02/2017. TECHNIQUE: Multiplanar and multisequence imaging was performed of the abdomen without and with contrast. T1-weighted, T2-weighted images, T1-weighted in and [id number], and Diffusion weighted images. Dynamic, post gadolinium T1-weighted spoiled gradient echo scans. M.R.C.P. Technique: Multiplanar, multisequence MRCP was performed, with sequences including coronal turbo spin-echo T1-weighted scans, [facility] MRCP scans, coronal spin, coronal MPR 2, [facility], [facility] MRCP [place]. 3-D thin and thick slab MRCP sequences were performed by the technologist on the scanner workstation. IV Contrast: 20 mL of MultiHance gadolinium Oral Contrast: None Medications: None COMPLICATIONS: None FINDINGS: LOWER THORAX: Unremarkable. HEPATOBILIARY: No focal hepatic lesions. No biliary ductal dilation. Common bile duct measures 0.6 cm with gradual tapering. GALLBLADDER: There are blooming artifacts at the gallbladder fossa, consistent with cholecystectomy clips. SPLEEN: No splenomegaly. PANCREAS: No focal masses or ductal dilatation. ADRENALS: No adrenal nodules KIDNEYS/URETERS: Kidneys enhance symmetrically. No hydronephrosis. 1.0 cm cyst in the posterior polar region of the left kidney. Additional smaller subcentimeters T2 hyperintensity, also likely a cyst. 1.2 cm T1 and T2 isointense lesion in the anterior interpolar region of the left kidney demonstrates hypoenhancement (series 9, image 97). No associated restricted diffusion. No stones. GI TRACT: No abnormal distention, wall thickening, or evidence of bowel obstruction. LYMPH NODES: No lymphadenopathy. VESSELS: Unremarkable. PERITONEUM / RETROPERITONEUM: No free air or fluid. BONES: Unremarkable. SOFT TISSUES: Unremarkable. IMPRESSION: 1. 1.2 cm lesion in the anterior left kidney that demonstrates hypoenhancement. This was subtly present on CT abdomen pelvis 09/02/2017. 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 2. Normal common bile duct on MRCP sequences. Signed by: Dr. Lauro Viramontes M.D. on 08/12/2018 5:19 PM
== END ==
LOC: MRI 10:04
PROVIDERS: ATTEND Internal Medicine Gastroenterology
DX: R10.13 Epigastric pain (principal); R10.84 Generalized abdominal pain; E11.9 Type 2 diabetes mellitus without complications; E66.3 Overweight; I10 Essential (primary) hypertension; Z71.3 Dietary counseling and surveillance
CPT/HCPCS: 36415; 74183; 82565; 84520; A9577

== ENCOUNTER → 2019-02-08 | Outpatient (CLI) | payer MEDICARE ==
[~2019-02-08] MED LIST changes: -GADOBENATE DIMEGLUMINE 1 ML IV ONE; +IOPAMIDOL 370 MG/ML 200 ML INFUS..BTL INJ ONE; +SODIUM CHLORIDE 0.9% 50ML 50 ML ONE
[2019-02-08 12:20] LABS: CREATININE, SERUM 1.3 mg/dL (0.72-1.25)
--- NOTE | 2019-02-08 13:46 | Diagnostic Imaging Report ---
CT of the abdomen and pelvis, with contrast. History: Abdominal pain. Comparison: MRI from 08/12/2018, CT from 09/02/2017, 01/20/2017. Technique: Multidetector CT scanning of the abdomen and pelvis was performed from the level of the lung bases to the inferior pubic rami after intravenous and oral administration of contrast. Coronal and sagittal multiplanar reformations were obtained. RADIATION DOSE: Total DLP: 530.99 mGy*cm Dose modulation, iterative reconstruction, and/or weight based adjustment of the mA/kV was utilized to reduce the radiation dose to as low as reasonably achievable. Findings: The lung bases are clear. The imaged portion of the heart demonstrates no significant abnormalities. The liver is normal in size but appears diffusely decreased in attenuation in comparison to the spleen which can be seen in the setting of hepatic steatosis. No focal hepatic abnormality is identified. The gallbladder surgically absent. There is no biliary ductal dilatation. The stomach, spleen, pancreas, and bilateral adrenal glands are unremarkable. The kidneys are normal in size and location and concentrate contrast and show properly. There is a solid, suspected enhancing lesion identified arising off the superior pole the left kidney which now measures 2.0 x 1.9 x 1.4 cm, previously 1.2 cm. There is no evidence for hydronephrosis. The ureters are normal course and caliber. The urinary bladder is unremarkable. The prostate is prominent with calcifications. The abdominal aorta is normal course and caliber with atherosclerotic calcifications. The IVC is unremarkable. Please note evaluation the bowel is limited without the use of enteric contrast material. The visualized loops of small and large bowel demonstrate no evidence of obstruction or inflammation. There is no ascites or intraperitoneal free air. Multiple normal-sized periaortic lymph nodes are noted, similar to prior examinations. No abnormally enlarged lymph nodes are identified within the abdomen or pelvis. There is a small fat-containing right inguinal hernia. The osseous structures demonstrate degenerative changes without evidence for acute fracture or destructive process. The extraperitoneal soft tissues are unremarkable. IMPRESSION: Solid lesion identified within the superior pole the left kidney which is mildly increased in size from prior MRI and CT examinations and is concerning for a malignant process such as RCC. Prompt urological consultation/evaluation is recommended if not already performed. Signed by: Dr. Vinh Rose MD on 02/08/2019 1:43 PM
--- NOTE | 2019-02-08 14:14 | Diagnostic Imaging Report ---
History:Blurred vision, headache Comparison studies:None Technique: Axial images were obtained from the skull base to the vertex. Coronal and sagittal images reconstructed from the axial data. Intravenous contrast: None Dose modulation, iterative reconstruction, and/or weight based adjustment of the mA/kV was utilized to reduce the radiation dose to as low as reasonably achievable. Findings: Scalp/skull: No abnormalities. Extra-axial spaces: No masses. No fluid collections. Brain sulci: Mildly prominent. Ventricles: Mild compensatory dilatation. No hydrocephalus. Parenchyma: Scattered small hypodensities in the supratentorial white matter are small vessel ischemic changes. No masses, hemorrhage, acute or chronic cortical vascular insults. Sellar/suprasellar region: No abnormalities. Craniocervical junction: Patent foramen magnum. No Chiari one malformation. Incidental findings: Atherosclerotic calcifications in the carotid siphons . Impression: No acute abnormalities. Chronic findings: 1. Mild generalized volume loss. 2. Mild supratentorial white matter small vessel ischemic changes. Signed by: DR Cosme Nunez M.D. on 02/08/2019 2:11 PM
== END ==
LOC: CT 11:32
PROVIDERS: ATTEND Family Medicine
DX: R51 Headache (principal)
CPT/HCPCS: 36415; 70450; 74177; 82565; 84520; Q9967

== ENCOUNTER → 2019-10-06 | Outpatient (CLI) | payer MEDICARE ==
[2019-10-06 12:15] LABS: BLOOD UREA NITROGEN 18 mg/dL (7-26); BUN/CREATININE RATIO 17 (6-25); CREATININE, SERUM 1.07 mg/dL (0.72-1.25); EST GLOMERULAR FILTRATION RATE > 60 ML/MIN (60-)
--- NOTE | 2019-10-06 12:20 | Diagnostic Imaging Report ---
EXAMINATION: CHEST 2 VIEWS INDICATION: Renal malignancy COMPARISON: Chest radiograph 01/18/2018 FINDINGS: LINES/TUBES:None LUNGS:The lungs are well-inflated. No focal consolidation or pulmonary edema. No radiographically apparent pulmonary nodule. PLEURA:No pleural effusion or pneumothorax. MEDIASTINUM:The cardiomediastinal silhouette appears normal in size and shape. BONES/SOFT TISSUES:No acute osseous injury. Partially visualized cervical spine hardware. ABDOMEN:No free air under the diaphragm. IMPRESSION: No focal pneumonia or pulmonary edema. No radiographically apparent pulmonary nodules. Signed by: Best Blanco MD on 10/06/2019 12:16 PM
--- NOTE | 2019-10-06 13:59 | Diagnostic Imaging Report ---
EXAM: CT Abdomen WITHOUT and WITH intravenous contrast INDICATION: Renal mass COMPARISON: CT abdomen and pelvis of 02/08/2019 TECHNIQUE: The abdomen was scanned utilizing a multidetector helical scanner from the lung base to the iliac crest before and after administration of IV contrast. Coronal and sagittal reformations were obtained. Renal mass protocol was performed. Scan was performed prior to contrast administration, during arterial phase and venous delay phase. IV CONTRAST: 100mL of Isovue 370 ORAL CONTRAST: None RADIATION DOSE: Total DLP: 1696 mGy*cm Dose modulation, iterative reconstruction, and/or weight based adjustment of the mA/kV was utilized to reduce the radiation dose to as low as reasonably achievable. FINDINGS: LOWER THORAX: Bibasilar dependent subsegmental atelectasis. Coronary artery atherosclerotic calcifications. HEPATOBILIARY: Mild diffuse hepatic steatosis. No focal liver lesion. No biliary ductal dilation. Status post cholecystectomy. SPLEEN: No splenomegaly. PANCREAS: No focal masses or ductal dilatation. ADRENALS: No adrenal nodules. KIDNEYS/URETERS: Again seen is the anterior left renal mass which now measures 2.5 cm and contains macroscopic fat. No hydronephrosis or renal calculi. No new solid renal mass lesions. PERITONEUM / RETROPERITONEUM: No free air or fluid. LYMPH NODES: No lymphadenopathy. VESSELS: Moderate atherosclerotic calcifications of the nonaneurysmal abdominal aorta. GI TRACT: No distention or wall thickening. BONES AND SOFT TISSUES: No acute osseous injury. No suspicious lytic or blastic lesions. 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 Signed by: Best Blanco MD on 10/06/2019 1:56 PM
== END ==
LOC: CT 11:01
PROVIDERS: ATTEND Urology
DX: C64.1 Malignant neoplasm of right kidney, except renal pelvis (principal)
CPT/HCPCS: 36415; 71046; 74170; 82565; 84520; Q9967

== ENCOUNTER → 2020-02-19 | Outpatient (CLI) | payer MEDICARE ==
[~2020-02-19] MED LIST changes: -IOPAMIDOL 370 MG/ML 200 ML INFUS..BTL INJ ONE; -SODIUM CHLORIDE 0.9% 50ML 50 ML ONE
--- NOTE | 2020-02-19 14:54 | Diagnostic Imaging Report ---
History: Persistent headache Comparison studies: Head CT 02/08/2019. Technique: Sagittal and axial T2 FS, axial DWI, axial T2*GRE, axial T1 FLAIR and axial coronal T2 FLAIR. Intravenous contrast: None Findings: Notification for this exam was received at 2:37 PM on 02/19/2020. Scalp: Normal in signal. No masses. Bone marrow: Normal in signal intensity. Brain sulci: Mildly prominent. Ventricles: Mild compensatory dilatation. No hydrocephalus. Extra axial spaces: No mass, no fluid collection. Parenchyma: No mass, hemorrhage or acute ischemia. A few scattered and mildly confluent periventricular T2 FLAIR hyperintensities in the supratentorial white matter are nonspecific but are most compatible with chronic microvascular ischemic changes. Small chronic lacunar infarcts are present in the posterior left superior temporal gyrus near its junction with the supramarginal gyrus of the left interparietal lobule and in the anterior left putamen. Suprasellar region: No abnormalities. Craniocervical junction: Patent foramen magnum. No Chiari malformation. Vessels: Flow-voids are maintained within the major intracranial arteries and dural venous sinuses. Calcified atherosclerosis in the carotid siphons and intradural vertebral arteries is seen on the prior head CT. IMPRESSION: No acute intracranial abnormalities. No changes from the prior head CT of 02/08/2019. Chronic findings: 1. Mild generalized parenchymal volume loss. 2. Left putaminal left posterior temporal lacunar infarcts. 3. Mild to moderate supratentorial microvascular ischemic changes. Signed by: Dr. Jack Floyd M.D. on 02/19/2020 2:50 PM
== END ==
LOC: MRI 10:33
PROVIDERS: ATTEND Family Medicine
DX: R51 Headache (principal)
CPT/HCPCS: 70551

== ENCOUNTER → 2020-09-11 | Outpatient (CLI) | payer MEDICARE ==
[~2020-09-11] MED LIST changes: +GADOBENATE DIMEGLUMINE 1 ML IV ONE
[2020-09-11 14:11] LABS: BLOOD UREA NITROGEN 13 mg/dL (7-26); BUN/CREATININE RATIO 13 (6-25); CREATININE, SERUM 0.97 mg/dL (0.72-1.25); EST GLOMERULAR FILTRATION RATE > 60 ML/MIN (60-)
== END ==
LOC: MRI 13:00
PROVIDERS: ATTEND Ophthalmology
DX: H57.11 Ocular pain, right eye (principal)
CPT/HCPCS: 36415; 70543; 70553; 82565; 84520; A9577

== ENCOUNTER → 2020-10-25 | Outpatient (CLI) | payer MEDICARE ==
[~2020-10-25] MED LIST changes: -GADOBENATE DIMEGLUMINE 1 ML IV ONE; +IOPAMIDOL 370 MG/ML 200 ML INFUS..BTL INJ ONE; +SODIUM CHLORIDE 0.9% 50ML 50 ML ONE
[2020-10-25 15:04] LABS: BLOOD UREA NITROGEN 15 mg/dL (7-26); BUN/CREATININE RATIO 15 (6-25); CREATININE, SERUM 0.97 mg/dL (0.72-1.25); EST GLOMERULAR FILTRATION RATE > 60 ML/MIN (60-)
== END ==
LOC: CT 13:38
PROVIDERS: ATTEND Urology
DX: C64.2 Malignant neoplasm of left kidney, except renal pelvis (principal)
CPT/HCPCS: 36415; 71046; 74170; 82565; 84520; Q9967

== ENCOUNTER → 2021-12-24 | Outpatient (CLI) | payer MEDICARE ==
[~2021-12-24] MED LIST changes: +IOPAMIDOL 370 MG/ML 100 ML INFUS..BTL INJ ONE; -IOPAMIDOL 370 MG/ML 200 ML INFUS..BTL INJ ONE; -SODIUM CHLORIDE 0.9% 50ML 50 ML ONE
== END ==
LOC: CT 13:17
PROVIDERS: ATTEND Urology
DX: C64.1 Malignant neoplasm of right kidney, except renal pelvis (principal)
CPT/HCPCS: 74170; Q9967

== ENCOUNTER 2022-01-16 18:03 | Emergency (ER) | payer MEDICARE ==
[~2022-01-16] VITALS: Ht 177.8 cm; Wt 92.1 kg
[~2022-01-16 18:03] MED LIST changes: -IOPAMIDOL 370 MG/ML 100 ML INFUS..BTL INJ ONE
[2022-01-16] MEDS ORDERED: SODIUM CHLORIDE 0.9% 1000ML 1,000 ML IV ONE (18:30)
[2022-01-16 18:44] LABS: BASOPHILS % 0.2 % (0.0-1.0); EOSINOPHILS % 0.2 % (0.0-6.0); HEMOGLOBIN 15.3 g/dL (14.0-18.0); LYMPHOCYTES % 8.8 % (18.0-39.1); MEAN CORPUSCULAR HEMOGLOBIN 30.8 pg (28-32); MEAN CORPUSCULAR HGB CONC 33.3 g/dL (31-35); MEAN CORPUSCULAR VOLUME 92.6 fL (81-99); MONOCYTES # (AUTO) 1.1 (0.2-0.8); MONOCYTES % 9.7 % (4.4-11.3); NEUTROPHILS # (AUTO) 9.2 (2.1-6.9); NEUTROPHILS % 80.8 % (38.7-80.0); PLATELET COUNT 261 x10e3/uL (140-360); RED BLOOD COUNT 4.97 x10e6/uL (4.3-5.7); RED CELL DISTRIBUTION WIDTH 13.3 % (11.7-14.4)
[2022-01-16 19:01] LABS: ALBUMIN 4.1 g/dL (3.5-5.0); ALBUMIN/GLOBULIN RATIO 1.1 (0.8-2.0); ANION GAP 15.6 mmol/L (8-16); CREATININE, SERUM 1.35 mg/dL (0.72-1.25); POTASSIUM 3.6 mmol/L (3.5-5.1)
[2022-01-16] MEDS ORDERED: PROAIR HFA INH8.5 GM PO (19:32)
[2022-01-16] MEDS ORDERED: BENZONATATE200 MG PO (19:32)
[2022-01-16 19:36] LABS: CLARITY,URINE CLEAR (CLEAR); COLOR,URINE YELLOW (YELLOW); LEUKOCYTE ESTERASE ,URINE NEGATIVE (NEGATIVE); NITRITE,URINE NEGATIVE (NEGATIVE); PROTEIN,URINE DIPSTICK 1+ (NEGATIVE)
[2022-01-16 19:37] LABS: KETONES,URINE TRACE (NEGATIVE); URINE UROBILINOGEN 0.2 mg/dL (0.2 - 1)
[2022-01-16] MEDS ORDERED: CLONAZEPAM 0.5 MG TAB PO ONE (19:45)
[2022-01-16 19:54] LABS: BACTERIA,URINE FEW /HPF; EPITHELIAL CELLS,URINE FEW /LPF; RBC,URINE 21-50 /HPF (0-5)
[2022-01-16 19:55] VITALS: BP 138/76
== END 2022-01-16 19:50 | disposition home or self-care (01) ==
LOC: ER 18:16
DX: R50.9 Fever, unspecified (principal); U07.1 COVID-19; J12.82 Pneumonia due to coronavirus disease 2019; G47.00 Insomnia, unspecified; E11.65 Type 2 diabetes mellitus with hyperglycemia; I10 Essential (primary) hypertension; E03.9 Hypothyroidism, unspecified; B19.20 Unspecified viral hepatitis C without hepatic coma; Z95.5 Presence of coronary angioplasty implant and graft
CPT/HCPCS: 36415; 71045; 80053; 81001; 83605; 85025; 87040; 87086; 93005; 99284; J0456; J0696; J7030; J7050; U0002

== ENCOUNTER → 2022-11-23 | Outpatient (CLI) | payer MEDICARE ==
[~2022-11-23] MED LIST changes: +BENZONATATE200 MG PO; +PROAIR HFA INH8.5 GM PO
[2022-11-23 15:57] LABS: CREATININE, SERUM 0.96 mg/dL (0.72-1.25)
== END ==
LOC: CT 15:06
PROVIDERS: ATTEND Urology
DX: C64.1 Malignant neoplasm of right kidney, except renal pelvis (principal)
CPT/HCPCS: 36415; 74170; 82565; 84520

== ENCOUNTER → 2023-04-05 | Outpatient (REF) | payer MEDICARE ==
[~2023-04-05] MED LIST changes: +GADOBENATE DIMEGLUMINE 1 ML IV ONE
[2023-04-05 11:12] LABS: CREATININE, SERUM 1.03 mg/dL (0.72-1.25)
== END ==
LOC: MRI 10:26
PROVIDERS: ATTEND Urology
DX: C64.1 Malignant neoplasm of right kidney, except renal pelvis (principal)
CPT/HCPCS: 36415; 71250; 74183; 82565; 84520; A9577

== ENCOUNTER → 2024-01-24 | Outpatient (REF) | payer MEDICARE ==
[~2024-01-24] MED LIST changes: +FLOMAX0.4 MG PO; +GABAPENTIN100 MG PO; -GADOBENATE DIMEGLUMINE 1 ML IV ONE; +LIPITOR10 MG PO; +LOSARTAN-HCTZ1 EACH PO; +TEMAZEPAM15 MG PO
== END ==
LOC: MRI 10:31
PROVIDERS: ATTEND Family Medicine
DX: G62.9 Polyneuropathy, unspecified (principal); S39.012A Strain of muscle, fascia and tendon of lower back, initial encounter; M51.36 Other intervertebral disc degeneration, lumbar region; M54.16 Radiculopathy, lumbar region; M47.816 Spondylosis without myelopathy or radiculopathy, lumbar region; M43.16 Spondylolisthesis, lumbar region
CPT/HCPCS: 72148

== ENCOUNTER → 2024-02-03 | Day surgery (SDC) | payer MEDICARE ==
[2024-01-27 15:15] LABS: BASOPHILS % 0.2 % (0.0-1.0); EOSINOPHILS # (AUTO) 0.2 (0.0-0.4); HEMATOCRIT 40.3 % (38.2-49.6); HEMOGLOBIN 12.5 g/dL (14.0-18.0); LYMPHOCYTES # (AUTO) 1.8 (1.0-3.2); LYMPHOCYTES % 20.6 % (18.0-39.1); MEAN CORPUSCULAR HEMOGLOBIN 27.7 pg (28-32); MEAN CORPUSCULAR VOLUME 89.4 fL (81-99); MONOCYTES # (AUTO) 0.8 (0.2-0.8); MONOCYTES % 8.8 % (4.4-11.3); NEUTROPHILS % 68.1 % (38.7-80.0); PLATELET COUNT 252 x10e3/uL (140-360); RED BLOOD COUNT 4.51 x10e6/uL (4.3-5.7); RED CELL DISTRIBUTION WIDTH 14.7 % (11.7-14.4); WHITE BLOOD COUNT 8.82 x10e3/uL (4.8-10.8)
[2024-01-27 15:34] LABS: ANION GAP 13.9 mmol/L (8-16); CALCIUM 9.4 mg/dL (8.4-10.2); CREATININE, SERUM 1.05 mg/dL (0.72-1.25); POTASSIUM 3.9 mmol/L (3.5-5.1)
[~2024-02-03] MED LIST changes: +ACETAMINOPHEN-1 EAC4 PO; +ACETAMINOPHEN/CODEINE 300MG - 30MG TAB ONE; +BUPIVACAINE HCL 0.5% 10ML MPF VIAL INJ ONE; +DEXAMETHASONE SOD PHOS INJ 4 MG/ML SDV ONE; +FENTANYL CITRATE/PF 100MCG/2 ML INJ ONE; +HYDROCODON-ACE1 EA12 PO; +LIDOCAINE HCL 2% LOCAL INJ 5 ML SDV VIAL INJ ONE; +MUPIROCIN 2% OINT 22 GM TUBE ONE; +ONDANSETRON HCL INJ 2MG/ML 2ML 2 MG/ML VIAL ONE; +PROPOFOL IV EMULSION 10 MG/ML 20 ML VIAL ONE; +SEVOFLURANE INHAL SOLN 250 ML PEN BTL ONE
[2024-02-03] MEDS: LACTATED RINGER'S 1,000 ML ONE (09:26)
[2024-02-03 10:55] VITALS: BP 152/64; PULSE 55; RESP 16; O2SAT 98
== END | disposition home or self-care (01) ==
LOC: OR 06:27
PROVIDERS: ATTEND Plastic Surgery
DX: G56.02 Carpal tunnel syndrome, left upper limb (principal); M65.842 Other synovitis and tenosynovitis, left hand; I10 Essential (primary) hypertension; E11.9 Type 2 diabetes mellitus without complications; E78.5 Hyperlipidemia, unspecified; E03.9 Hypothyroidism, unspecified; I25.10 Atherosclerotic heart disease of native coronary artery without angina pectoris; E66.01 Morbid (severe) obesity due to excess calories; K21.9 Gastro-esophageal reflux disease without esophagitis; G89.29 Other chronic pain; N40.0 Benign prostatic hyperplasia without lower urinary tract symptoms; Z01.810 Encounter for preprocedural cardiovascular examination; Z01.812 Encounter for preprocedural laboratory examination; Z01.818 Encounter for other preprocedural examination; Z79.84 Long term (current) use of oral hypoglycemic drugs; Z79.899 Other long term (current) drug therapy
CPT/HCPCS: 25115; 36415; 71046; 80048; 85025; 93005; J0690; J1100; J2001; J2405; J2704; J3010; J7121

== ENCOUNTER 2024-07-16 08:42 | Emergency (ER) | payer MEDICARE ==
[~2024-07-16] VITALS: Ht 177.8 cm; Wt 88.5 kg
[~2024-07-16 08:42] MED LIST changes: -ACETAMINOPHEN/CODEINE 300MG - 30MG TAB ONE; -BUPIVACAINE HCL 0.5% 10ML MPF VIAL INJ ONE; -DEXAMETHASONE SOD PHOS INJ 4 MG/ML SDV ONE; -FENTANYL CITRATE/PF 100MCG/2 ML INJ ONE; -LIDOCAINE HCL 2% LOCAL INJ 5 ML SDV VIAL INJ ONE; -MUPIROCIN 2% OINT 22 GM TUBE ONE; -ONDANSETRON HCL INJ 2MG/ML 2ML 2 MG/ML VIAL ONE; -PROPOFOL IV EMULSION 10 MG/ML 20 ML VIAL ONE; -SEVOFLURANE INHAL SOLN 250 ML PEN BTL ONE
[2024-07-16 08:46] VITALS: PULSE 88; RESP 17; TEMP 97.8
[2024-07-16] MEDS ORDERED: SODIUM CHLORIDE FLUSH 10 ML SYR IV PRN (09:00)
[2024-07-16] MEDS: LABETALOL HCL 5 MG/ML 20ML VIAL IV STA (09:16)
[2024-07-16 09:21] LABS: BASOPHILS % 0.2 % (0.0-1.0); EOSINOPHILS # (AUTO) 0.1 (0.0-0.4); EOSINOPHILS % 1.5 % (0.0-6.0); HEMATOCRIT 42.9 % (38.2-49.6); HEMOGLOBIN 14.2 g/dL (14.0-18.0); LYMPHOCYTES % 22.9 % (18.0-39.1); MEAN CORPUSCULAR HEMOGLOBIN 29.3 pg (28-32); MEAN CORPUSCULAR HGB CONC 33.1 g/dL (31-35); MEAN CORPUSCULAR VOLUME 88.5 fL (81-99); MONOCYTES # (AUTO) 0.7 (0.2-0.8); MONOCYTES % 7.8 % (4.4-11.3); NEUTROPHILS # (AUTO) 5.9 (2.1-6.9); NEUTROPHILS % 67.3 % (38.7-80.0); PLATELET COUNT 221 x10e3/uL (140-360); RED BLOOD COUNT 4.85 x10e6/uL (4.3-5.7); RED CELL DISTRIBUTION WIDTH 14.6 % (11.7-14.4); WHITE BLOOD COUNT 8.72 x10e3/uL (4.8-10.8)
[2024-07-16 09:40] LABS: ALANINE AMINOTRANSFERASE 31 IU/L (0-55); ALBUMIN 3.9 g/dL (3.5-5.0); ALBUMIN/GLOBULIN RATIO 1.2 (0.8-2.0); ALKALINE PHOSPHATASE 85 IU/L (40-150); ANION GAP 13.9 mmol/L (8-16); BILIRUBIN,TOTAL 0.6 mg/dL (0.2-1.2); BLOOD UREA NITROGEN 22 mg/dL (7-26); BUN/CREATININE RATIO 20 (6-25); CALCIUM 9.2 mg/dL (8.4-10.2); CARBON DIOXIDE 25 mmol/L (22-29); CHLORIDE 104 mmol/L (98-107); CREATININE, SERUM 1.08 mg/dL (0.72-1.25); EST GLOMERULAR FILTRATION RATE 68 ML/MIN (>=60); GLUCOSE 137 mg/dL (74-118); POTASSIUM 3.9 mmol/L (3.5-5.1); SODIUM 139 mmol/L (136-145); TOTAL PROTEIN 7.1 g/dL (6.5-8.1)
[2024-07-16 09:50] VITALS: PULSE 60; RESP 16
[2024-07-16 09:51] LABS: TROPONIN I < 0.001 ng/mL (0-0.300)
[2024-07-16 10:23] VITALS: BP 167/71
[2024-07-16] MEDS: HYDRALAZINE HCL 20 MG/ML VIAL IV STA (10:23)
[2024-07-16 10:59] VITALS: O2SAT 98
[2024-07-16] MEDS: MECLIZINE HCL 12.5 MG TAB PO ONE (11:09)
[2024-07-16] MEDS ORDERED: MECLIZINE HCL25 MG PO (11:23)
== END 2024-07-16 11:01 | disposition home or self-care (01) ==
LOC: ER 08:52
DX: R51.9 Headache, unspecified (principal); I16.0 Hypertensive urgency; I10 Essential (primary) hypertension; E11.65 Type 2 diabetes mellitus with hyperglycemia; E03.9 Hypothyroidism, unspecified; I25.10 Atherosclerotic heart disease of native coronary artery without angina pectoris; K76.9 Liver disease, unspecified; K21.9 Gastro-esophageal reflux disease without esophagitis; F41.9 Anxiety disorder, unspecified; R94.31 Abnormal electrocardiogram [ECG] [EKG]; Z87.442 Personal history of urinary calculi; Z95.5 Presence of coronary angioplasty implant and graft
CPT/HCPCS: 36415; 70450; 71045; 80053; 84484; 85025; 93005; 94760; 99284; J0360; J3490; J8597

== ENCOUNTER → 2024-08-16 | Outpatient (REF) | payer MEDICARE ==
[~2024-08-16] MED LIST changes: +MECLIZINE HCL25 MG PO
== END ==
LOC: CT 13:49
PROVIDERS: ATTEND Family Medicine
DX: K40.40 Unilateral inguinal hernia, with gangrene, not specified as recurrent (principal)
CPT/HCPCS: 74176

== ENCOUNTER → 2025-03-07 | Outpatient (REF) | payer MEDICARE ==
[2025-03-07 09:39] LABS: EST GLOMERULAR FILTRATION RATE 72.0 ML/MIN (>=60)
== END ==
LOC: CT 08:46
PROVIDERS: ATTEND Family Medicine
DX: R10.9 Unspecified abdominal pain (principal); Z87.442 Personal history of urinary calculi; Z87.19 Personal history of other diseases of the digestive system
CPT/HCPCS: 36415; 74178; 82565; 84520